=== PATIENT | male | born 1980 | race Caucasian/White ===

== ENCOUNTER 2019-03-25 11:55 | Emergency (ER) | payer OTHER ==
[~2019-03-25] VITALS: Ht 188 cm; Wt 102.1 kg
--- NOTE | ~2019-03-25 | EMS ---
[facility] [address] [place] [address] EMS Patient Care Report Name: YAMILEX SMITH Room #: REG HALEY Campos#: [id number] Admission: 03/25/19 Attend Phys: Discharge: Date of : [birth year] Report #: [id number] THIS REPORT FOR: //name// Report Transmitted: 03/25/2019 12:55 EMS Care Summary [place], [place]/[facility] Incident [id number] @ 03/25/2019 11:03 Incident Location [address] [place], [place] [id number] Patient YAMILEX SMITH Male, 39 Years 1980 Patient Address [id number] [place] [id number] Patient History Behavioral/Psychiatric Disorder,Substance Abuse, Patient Allergies No known allergies, Patient Medications Other, Chief Complaint freaking out from abusing "meth" Disposition Transported No Lights/[place] Reason Overdose/Poisoning/Ingestion Transported To [facility] Narrative pt. states he is freaking out because he smoked a large amount of "meth" at approx. 0200 then around 0700 he ate some "meth". pt. states he is nauseated [facility] [address] [place] [address] EMS Patient Care Report Name: YAMILEX SMITH Room #: REG HALEY Campos#: [id number] Admission: 03/25/19 Attend Phys: Discharge: Date of : [birth year] Report #: [id number] and he doesn't want to . pt. denied any si/hi. pt. denied any other complaints or loc. pt. was sitting upright in a chair with pd and bystander present. pt. was in no distress. pt. was cooperative. no change in pt. status enroute. Initial Vitals @11:38P: 116,CO: 1,SpO2: 98, @11:52P: 114,R: 24,BP: 149/76,Pain: 0/10,GCS: 15,CO: 2,SpO2: 98,Revised Trauma: 12, @11:36P: 114,R: 24,BP: 160/89,Pain: 0/10,GCS: 15,SpO2: 98,Revised Trauma: 12, Assessments @11:32MENTAL:Other,SKIN:No Abnormalities,HEENT:Head/Face: No Abnormalities,Eyes: No Abnormalities,Neck/Airway: No Abnormalities,LUNG SOUNDS:General: Nausea,ABDOMEN:General: Nausea,PELVIS//GI:No Abnormalities,EXTREMITIES:Left Arm: No Abnormalities,Right Arm: No Abnormalities,Left Leg: No Abnormalities,Right Leg: No Abnormalities,PULSE:NEURO:No Abnormalities, Impression Substance abuse Procedures @11:32ALS AssessmentResponse: Unchanged@11:383-Lead ECGResponse: Unchanged@11:43Saline Lock 0cc (18 ga) Site: Antecubital-LeftResponse: UnchangedSucceeded Timeline 11:01,Call Received 11:01,Dispatch Notified 11:03,Dispatched 11:03,En Route 11:32,On Scene 11:32,At Patient 11:32,ALS Assessment,Response: Unchanged 11:36,BP: 160/89 M,PULSE: 114,RR: 24 R,SPO2: 98 Ox,ETCO2: ,BG: ,PAIN: 0,GCS: 15, 11:38,3-Lead ECG,Response: Unchanged 11:38,BP: / M,PULSE: 116,RR: R,SPO2: 98 Ox,ETCO2: ,BG: ,PAIN: ,GCS: , 11:39,Depart Scene 11:43,Saline Lock 0cc 18 ga Site: Antecubital-Left,Response: UnchangedSucceeded, 11:51,At Destination 11:52,BP: 149/76 M,PULSE: 114,RR: 24 R,SPO2: 98 Ox,ETCO2: ,BG: ,PAIN: 0,GCS: 15, 12:04,Call Closed [facility] [address] [place] [address] EMS Patient Care Report Name: YAMILEX SMITH Room #: REG HALEY Campos#: [id number] Admission: 03/25/19 Attend Phys: Discharge: Date of : 78 Report #: [id number] Disclaimer v1.1 Copyright 2019 [employer] This EMS Care Summary contains data elements from the applicable legal record (which may be displayed differently). It is designed to provide pertinent information for the following purposes: continuity of care, clinical quality, and state data reporting. The complete legal record is available to ED staff and administrators of the receiving hospital in [facility]'s Patient Tracker. All data is provided "as is."
[2019-03-25] MEDS ORDERED: WELLBUTRIN 100100 MG PO (12:04)
[2019-03-25] MEDS ORDERED: CLONIDINE HCL0.3 M3 PO (12:04)
[2019-03-25] MEDS ORDERED: NEURONTIN100 MG PO (12:04)
[2019-03-25 12:12] LABS: ABSOLUTE NEUTROPHILS 11.2 thou/uL (1.4-8.2); BASOPHILS 0.2 % (0.0-2.0); HEMATOCRIT 47.4 % (42.0-52.0); HEMOGLOBIN 16.1 gm/dL (14.0-18.0); LYMPHOCYTES 16.1 % (24.0-44.0); MCH 27.6 pg (26.0-34.0); MCHC 33.9 g/dL (28.0-37.0); MCV 81.6 fL (80.0-100.0); PLATELET COUNT 274 thou/uL (150-400); POLYS 77.7 % (36.0-66.0); RBC 5.81 mil/uL (4.50-6.00); RDW 14.6 % (10.5-14.5); WBC 14.4 thou/uL (4.0-11.0)
[2019-03-25 12:36] LABS: ALBUMIN 4.3 g/dL (3.4-5.0); ANION GAP 19 mmol/L (7-16); BUN 9 mg/dL (7-18); CHLORIDE 101 mmol/L (98-107); CO2 20 mmol/L (21-32); CREATININE 1.4 mg/dL (0.7-1.3); GLUCOSE 110 mg/dL (74-106); POTASSIUM 3.5 mmol/L (3.5-5.1); SGOT 19 U/L (15-37); SGPT 26 U/L (30-65); SODIUM 140 mmol/L (136-145); TOTAL BILIRUBIN 0.5 mg/dL (<0.1-1.0); TOTAL PROTEIN 8.3 g/dL (6.4-8.2); TROPONIN-I <0.06 ng/mL (<0.06)
[2019-03-25 12:55] LABS: CALCIUM 9.8 mg/dL (8.5-10.1)
[2019-03-25 13:35] LABS: AMP/METHAMP POSITIVE (Negative); BARBITURATES Negative (Negative); BENZODIAZEPINES Negative (Negative); COCAINE Negative (Negative); METHADONE Negative (Negative); OPIATES Negative (Negative); PCP Negative (Negative)
[2019-03-25] MEDS ORDERED: ATIVAN1 M1 PO (16:23)
[2019-03-25 16:34] VITALS: BP 138/86
--- NOTE | 2019-03-26 10:15 | EKG ---
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
--- NOTE | 2019-03-26 10:16 | EKG ---
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
== END 2019-03-25 16:35 | disposition home or self-care (01) ==
LOC: ER 11:55
PROVIDERS: Physician Assistant
DX: F41.9 Anxiety disorder, unspecified (principal); F15.90 Other stimulant use, unspecified, uncomplicated; R07.89 Other chest pain; F32.9 Major depressive disorder, single episode, unspecified

== ENCOUNTER 2019-03-29 23:56 | Emergency (ER) | payer OTHER ==
[~2019-03-29] VITALS: Ht 188 cm; Wt 108.9 kg
[~2019-03-29 23:56] MED LIST: ATIVAN1 M1 PO; CLONIDINE HCL0.3 M3 PO; NEURONTIN100 MG PO; WELLBUTRIN 100100 MG PO
[2019-03-30 01:03] LABS: ABSOLUTE NEUTROPHILS 5.7 thou/uL (1.4-8.2); BASOPHILS 0.8 % (0.0-2.0); EOSINOPHILS 0.2 % (0.0-3.0); HEMATOCRIT 48.5 % (42.0-52.0); HEMOGLOBIN 16.3 gm/dL (14.0-18.0); LYMPHOCYTES 27.1 % (24.0-44.0); MCH 27.3 pg (26.0-34.0); MCHC 33.6 g/dL (28.0-37.0); MCV 81.2 fL (80.0-100.0); MONOCYTES 5.4 % (1.0-8.0); PLATELET COUNT 254 thou/uL (150-400); POLYS 66.5 % (36.0-66.0); RBC 5.97 mil/uL (4.50-6.00); RDW 14.1 % (10.5-14.5); WBC 8.6 thou/uL (4.0-11.0)
[2019-03-30 01:07] LABS: ANION GAP 12 mmol/L (7-16); BUN 8 mg/dL (7-18); CALCIUM 9.3 mg/dL (8.5-10.1); CHLORIDE 105 mmol/L (98-107); CO2 28 mmol/L (21-32); CREATININE 1.3 mg/dL (0.7-1.3); GLUCOSE 118 mg/dL (74-106); POTASSIUM 4.1 mmol/L (3.5-5.1); SODIUM 145 mmol/L (136-145)
[2019-03-30 01:15] LABS: TROPONIN-I <0.06 ng/mL (<0.06)
[2019-03-30 01:36] VITALS: BP 135/79
--- NOTE | 2019-03-30 08:31 | EKG ---
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 03/30/19 0831 0037 0037 Chris Sigala MD, FACC /EPI
== END 2019-03-30 01:42 | disposition home or self-care (01) ==
LOC: ER 23:56
PROVIDERS: Emergency Medicine
DX: F15.10 Other stimulant abuse, uncomplicated (principal); F41.9 Anxiety disorder, unspecified; F32.9 Major depressive disorder, single episode, unspecified